=== PATIENT | female | born 1955 | race Caucasian/White ===

== ENCOUNTER 2025-03-11 10:44 | Oncology outpatient (recurring) (ONCR) | payer OTHER, SELFPAY ==
[2025-03-11 11:57] LABS: Estmated Average Glucose 131; Hemoglobin A1C 6.2 % (4.0-6.0)
[2025-03-11 12:08] LABS: Alanine Aminotransferase 14 U/L (0-33); Albumin Level 3.8 g/dL (3.5-5.2); Alkaline Phosphatase 58 U/L (35-105); Anion Gap 11.9 (5-19); Aspartate Amino Transferase 23 U/L (0-32); Blood Urea Nitrogen 10 mg/dL (8-23); Calcium 8.8 mg/dL (8.5-10.5); Carbon Dioxide 26 mmol/L (22-29); Chloride 104 mmol/L (98-107); Cholesterol 140 mg/dL (0-200); Ferritin 164 ng/mL (15-150); Globulin 2.5 g/dL (1.3-4.6); Glucose 114 mg/dL (65-115); HDL Cholesterol 57 mg/dL (60-100); Iron 75 ug/dL (37-145); Osmolality Calculated 286 mOsm/kg (285-295); Potassium 3.9 mmol/L (3.5-5.1); Sodium 138 mmol/L (136-145); Total Protein 6.3 g/dL (6.6-8.7); Triglycerides 88 mg/dL (0-150); VLDL Cholestrol Calculation 18 mg/dL (0-30)
[2025-03-11 12:22] LABS: Vitamin B12 1304 pg/mL (232-1245)
== END 2025-03-16 23:59 | disposition home or self-care (01) ==
LOC: ONCMED 10:45
PROVIDERS: Family Provider Internal Medicine; PCP Clinical Nurse Specialist Adult Health; Visit Provider Clinical Nurse Specialist Adult Health
DX: M06.9 Rheumatoid arthritis, unspecified (principal); E11.9 Type 2 diabetes mellitus without complications; D50.9 Iron deficiency anemia, unspecified
CPT/HCPCS: 36591; 80053; 80061; 82607; 82728; 83036; 83540; 85651; 86038; 86140; 86431

== ENCOUNTER → 2025-03-18 09:36 | Outpatient (BNVA) | payer OTHER, SELFPAY | PROVIDERS: Family Provider Internal Medicine; PCP Clinical Nurse Specialist Adult Health; Visit Provider Podiatrist Foot & Ankle Surgery | DX: M79.671 Pain in right foot (principal); M79.672 Pain in left foot; E11.40 Type 2 diabetes mellitus with diabetic neuropathy, unspecified; L84 Corns and callosities; L90.9 Atrophic disorder of skin, unspecified; M77.41 Metatarsalgia, right foot; M77.42 Metatarsalgia, left foot; I73.9 Peripheral vascular disease, unspecified | CPT/HCPCS: 73630; 99204 ==

== ENCOUNTER 2025-03-25 08:27 | Emergency (ER) | payer MEDICARE, SELFPAY ==
[2025-03-25 08:28] VITALS: BP 107/61; PULSE 78; RESP 16; TEMP 36.7; O2SAT 95; BMI 23.0
--- NOTE | 2025-03-25 08:30 | XR_ITS ---
WS: [id number] Right knee, 3 views, 03/25/2025 Clinical Data: pain Comparison: None. Findings: There is a right knee arthroplasty with components in good position. No periprosthetic fractures or loosening is seen. There is vascular calcification. XR/XR knee RT 3V* [id number] Impression: Right knee arthroplasty.
--- NOTE | 2025-03-25 08:40 | XR_ITS ---
WS: [id number] Right leg including the tibia and fibula, AP and lateral views, 03/25/2025 Clinical Data: Pain Comparison: None. Findings: No fractures or dislocations are seen. The tibia and fibula are intact. The soft tissues are normal. There is a right knee arthroplasty with components in good position. There is vascular calcification. XR/XR tibia fibula RT 2V [id number] Impression: Negative right leg.
--- NOTE | 2025-03-25 08:40 | W.ED.GENADLT ---
HPI - General Adult General: Chief complaint: Extremity Injury, Lower Stated complaint: RT Knee Pain Time Seen by Provider: 03/25/25 08:30 History of Present Illness: 69-year-old female who presents to the emergency room with complaints of right knee pain. She was walking yesterday felt a popping sensation in her proximal tibia. She denies falling she has been able to walk on it since then she uses a cane but it has been painful. No direct trauma or injury. She has no obvious deformity no redness she denies fever sweats or chills. No claudication. Denies back pain or radiating leg pain. Associated symptoms: Deny chest pain, dyspnea or rash Related Data Home Medications ?Medication ?Instructions ?Recorded ?Confirmed albuterol sulfate 90 mcg/actuation 2 puff inhalation Q6H PRN 03/11/25 03/18/25 aerosol inhaler (Ventolin HFA) aspirin 81 mg tablet,delayed 81 mg PO DAILY 03/11/25 03/18/25 release (Adult Aspirin Regimen) biotin 10,000 mcg chewable tablet mcg PO 03/11/25 03/18/25 (Hair, Skin and Nails (biotin)) buspirone 15 mg tablet 7.5 mg PO BID PRN anxiety 03/11/25 03/18/25 carvedilol 6.25 mg tablet (Coreg) 6.25 mg PO BID 03/11/25 03/18/25 cholecalciferol (vitamin D3) 10 10 mcg PO DAILY 03/11/25 03/18/25 mcg (400 unit) capsule clopidogrel 75 mg tablet 75 mg PO QDAY 03/11/25 03/18/25 dapagliflozin propanediol 10 mg 10 mg PO QAM 03/11/25 03/18/25 tablet (Farxiga) escitalopram oxalate 10 mg tablet 10 mg PO QDAY 03/11/25 03/18/25 ferrous sulfate 27 mg iron tablet 27 mg PO DAILY 03/11/25 03/18/25 fluticasone fur. 100 mcg-umeclid 1 inh inhalation Q24H 03/11/25 03/18/25 62.5 mcg-vilant 25 mcg inhalat.powder (Trelegy Ellipta) isosorbide mononitrate 60 mg 60 mg PO QAM 03/11/25 03/18/25 tablet,extended release 24 hr losartan 50 mg tablet 50 mg PO DAILY 03/11/25 03/18/25 mecobalamin (vitamin B12) 500 mcg 500 mcg PO .nightly 03/11/25 03/18/25 chewable tablet nitroglycerin 0.4 mg sublingual 0.4 mg sublingual Q5M PRN chest 03/11/25 03/18/25 tablet pain pantoprazole 40 mg tablet,delayed 40 mg PO DAILY 03/11/25 03/18/25 release ranolazine 1,000 mg 1,000 mg PO Q12H 03/11/25 03/18/25 tablet,extended release,12 hr tiotropium bromide 2.5 2 puff inhalation DAILY 03/11/25 03/18/25 mcg/actuation mist for inhalation (Spiriva Respimat) Previous Rx's ?Medication ?Instructions ?Recorded atorvastatin 80 mg tablet (Lipitor) 80 mg PO DAILY #90 tabs 03/11/25 baclofen 5 mg tablet 5 mg PO BID #60 tabs 03/11/25 furosemide 40 mg tablet (Lasix) 40 mg PO QAM #90 tabs 03/11/25 potassium chloride 10 mEq 20 meq (2 x 10 mEq) PO DAILY 90 03/11/25 tablet,extended release (Klor-Con) days #180 tabs tirzepatide 5 mg/0.5 mL 5 mg (0.5 mL) SUBCUT .every 7 days 03/11/25 subcutaneous pen injector #2 mL (David) diabetic shoes with 3 sets of #1 ea 03/18/25 inserts diclofenac sodium 75 mg 75 mg PO Q12H PRN pain #20 tabs 03/25/25 tablet,delayed release Allergies Allergy/AdvReac Type Severity Reaction Status Date / Time diphenhydramine (From Allergy Mild makes her Verified 03/25/25 08:40 Benadryl) loopy semaglutide (From Ozempic) Allergy Mild ADR-Nausea Verified 03/25/25 08:40 ticagrelor (From Brilinta) Allergy Mild ALGY-Rash Verified 03/25/25 08:40 band-aid Allergy Mild ALGY-Redness Uncoded 03/18/25 07:56 of Skin Review of Systems Const: Denies: fever(s) or chills Card: Denies: chest pain Resp: Denies: dyspnea GI: Denies: abdominal pain : Denies: dysuria, urinary frequency or urinary urgency Musc: Denies: neck pain or back pain Skin/Breast: Denies: rash PFSH ED PFSH: Medical History History of bleeding ulcers Port-A-Cath in place due to poor vascular access Hx of myocardial infarction X 3 bypasses Hx of cardiac pacemaker pacemaker with defibrillator Iron deficiency anemia hx of blood transfusions and iron infusions Hyperlipidemia GERD (gastroesophageal reflux disease) Hx of peptic ulcer Chronic joint pain Osteoporosis Rheumatoid arthritis COPD (chronic obstructive pulmonary disease) Essential hypertension Muscle spasm Anxiety and depression Tobacco dependence due to cigarettes Coronary artery disease Type 2 diabetes mellitus without complications Surgical History Hx of tubal ligation History of hip surgery right hip History of back surgery Hx of thoracic aortic aneurysm repair states she had a bottom aorta stent placed H/O cataract removal with insertion of prosthetic lens History of lymph node dissection of axilla Hx of knee surgery right Hx of CABG History of coronary artery stent placement Hx of adenoidectomy H/O dilation and curettage Hx of appendectomy Hx of cholecystectomy Family History Unknown No problems noted. Social History Smoking and tobacco/nicotine status: unknown if used tobacco/nicotine Alcohol intake: never Substance/Drug Use: never Marital status: Number of children: 3 Current occupational status: retired Physical Exam Const: GENERAL APPEARANCE: cooperative ORIENTATION/CONSCIOUSNESS: Yes awake, Yes oriented to person, Yes oriented to place and Yes oriented to time HENMT: COMMON NORMALS: normocephalic, atraumatic and hearing grossly normal bilaterally HEAD & SCALP: normocephalic and atraumatic Resp: COMMON NORMALS: normal respiratory effort, No retractions, No use of accessory muscles and clear to auscultation bilaterally AUSCULTATION: clear to auscultation bilaterally Cardio: COMMON NORMALS: regular rate, regular rhythm and No murmurs present (Cardio) RATE: regular rate RHYTHM: regular rhythm Extremity: COMMON NORMALS: normal to inspection, capillary refill normal, no clubbing, cyanosis or edema, no calf tenderness and no pedal edema OTHER: Right knee examined no obvious deformity. Able to flex and extend with mild tenderness over the tibial tuberosity no redness no erythema no laceration Neuro: SENSORIUM/ORIENTATION: Yes oriented to person, Yes oriented to place and Yes oriented to time Skin: COMMON NORMALS: no rashes or lesions noted GENERAL SKIN EXAM: no rashes or lesions noted Course Vital Signs: Vital signs: Vital Signs Temperature 98.0 F 03/25/25 08:28 Pulse Rate 78 03/25/25 08:28 Respiratory Rate 16 03/25/25 08:28 Blood Pressure 107/61 03/25/25 08:28 Pulse Oximetry 95 03/25/25 08:28 [facility] - General Adult Medical Decision Making X-rays unremarkable. Patient given ketorolac will discharge home. Follow-up with orthopedics she also mention that she has chronic pain in her right shoulder she would like to see the orthopedist for. Case management to arrange for referral Medical Records I reviewed the patient's medical records. Lab Data I reviewed the patient's lab results. Radiology Impressions Knee X-Ray 03/25/25 08:30 Impression: Right knee arthroplasty. Tibia/Fibula X-Ray 03/25/25 08:40 Impression: Negative right leg. All radiology interpretation(s) finalized by discharge Discharge Plan Discharge Patient Disposition: Home Clinical Impression: Pain in right lower leg Condition: Stable Prescriptions: New diclofenac sodium 75 mg tablet,delayed release (DR/EC) 75 mg PO Q12H PRN (Reason: pain) Qty: 20 0RF No Action clopidogrel 75 mg tablet 75 mg PO QDAY nitroglycerin 0.4 mg tablet, sublingual 0.4 mg sublingual Q5M PRN (Reason: chest pain) buspirone 15 mg tablet 7.5 mg PO BID PRN (Reason: anxiety) escitalopram oxalate 10 mg tablet 10 mg PO QDAY dapagliflozin propanediol [Farxiga] 10 mg tablet 10 mg PO QAM losartan 50 mg tablet 50 mg PO DAILY carvedilol [Coreg] 6.25 mg tablet 6.25 mg PO BID Rx Instructions: must administer with a meal/food isosorbide mononitrate 60 mg tablet extended release 24 hr 60 mg PO QAM pantoprazole 40 mg tablet,delayed release (DR/EC) 40 mg PO DAILY ranolazine 1,000 mg tablet extended release 12 hr 1,000 mg PO Q12H Spiriva Respimat 2.5 mcg/actuation mist 2 puff inhalation DAILY Trelegy Ellipta 100-62.5-25 mcg blister with device 1 inh inhalation Q24H aspirin [Adult Aspirin Regimen] 81 mg tablet,delayed release (DR/EC) 81 mg PO DAILY albuterol sulfate [Ventolin HFA] 90 mcg/actuation HFA aerosol inhaler 2 puff inhalation Q6H PRN cholecalciferol (vitamin D3) 10 mcg (400 unit) capsule 10 mcg PO DAILY ferrous sulfate 27 mg iron tablet 27 mg PO DAILY Hair, Skin and Nails (biotin) 10,000 mcg tablet,chewable PO mecobalamin (vitamin B12) 500 mcg tablet,chewable 500 mcg PO .nightly baclofen 5 mg tablet 5 mg PO BID Qty: 60 0RF atorvastatin [Lipitor] 80 mg tablet 80 mg PO DAILY Qty: 90 3RF furosemide [Lasix] 40 mg tablet 40 mg PO QAM Qty: 90 0RF potassium chloride [Klor-Con 10] 10 mEq tablet extended release 20 meq PO DAILY 90 Days Qty: 180 0RF Mounjaro 5 mg/0.5 mL pen injector 5 mg SUBCUT .every 7 days Qty: 2 6RF (DME) diabetic shoes with 3 sets of inserts See Rx Instructions .ROUTE .MEDSUPPLY Qty: 1 0RF Rx Instructions: As directed Discharge Orders: Discharge ED (Routine); Ordered 03/25/25 Ordered By: Prakash Jon Referrals: Helen Islas MD [Referring, Internal Medicine] Bulmaro Rico NP [Primary Care Provider, Family Practice] Discharge Diet: Usual diet Discharge Activity: Increase activity as tolerated Patient Instructions: Opioid Safety, Pain Management, Patient Portal & Gabrielle Instructions Activity Restrictions/Additional Instructions: Thank you for choosing [facility] for your healthcare needs today. It is very important that you follow up as instructed or that you return to the Emergency Department should you have concerns or if your condition changes or worsens in any way. Emergency department visits are focused on emergent conditions, in some cases you may require further evaluation on an outpatient basis. You are seen in the emergency room with complaint of pain to your right lower leg. X-rays did not show any acute fracture. Prosthesis appears well-seated. Recommend that you follow-up with your primary care doctor. Avoid strenuous activities continue to use the cane or walker while ambulating. (Please note that included in your discharge packet is information concerning opioid safety and pain management. This information is given to all patients were discharged from the ER regardless of their discharge diagnosis or the medicines they usually take or are prescribed.) Print Language: Citizen Of [place] Coding Level of Care Code ED Railway Track Worker for Rajeev Villalobos
[2025-03-25 09:35] VITALS: BP 124/70; PULSE 78; O2SAT 98
--- NOTE | 2025-03-26 07:44 | DCPLANNER ---
messaged ortho for er f/u
== END 2025-03-25 09:36 | disposition home or self-care (01) ==
PROVIDERS: Emergency Provider Family Medicine; PCP Clinical Nurse Specialist Adult Health
DX: M79.604 Pain in right leg (principal); Z79.02 Long term (current) use of antithrombotics/antiplatelets; Z79.82 Long term (current) use of aspirin; I25.10 Atherosclerotic heart disease of native coronary artery without angina pectoris; Z95.0 Presence of cardiac pacemaker; J44.9 Chronic obstructive pulmonary disease, unspecified; I10 Essential (primary) hypertension; E11.9 Type 2 diabetes mellitus without complications
CPT/HCPCS: 73562; 73590; 96374; 99284; J1885

== ENCOUNTER → 2025-03-27 09:17 | Outpatient (BNVA) | payer OTHER, MEDICAID, SELFPAY | PROVIDERS: Family Provider Internal Medicine; PCP Clinical Nurse Specialist Adult Health; Visit Provider Clinical Nurse Specialist Adult Health | DX: M25.811 Other specified joint disorders, right shoulder (principal) | CPT/HCPCS: 73030 ==

== ENCOUNTER → 2025-04-09 09:26 | Outpatient (BNVA) | payer MEDICARE, SELFPAY | PROVIDERS: PCP Clinical Nurse Specialist Adult Health; Visit Provider Student in an Organized Health Care Education/Training Program | DX: M75.81 Other shoulder lesions, right shoulder (principal); M19.011 Primary osteoarthritis, right shoulder | CPT/HCPCS: 20610; 73030; 99204; J3301; J9999 ==

== ENCOUNTER → 2025-04-15 08:51 | Outpatient (BNVA) | payer MEDICARE, SELFPAY | PROVIDERS: PCP Clinical Nurse Specialist Adult Health; Visit Provider Student in an Organized Health Care Education/Training Program | DX: M25.561 Pain in right knee (principal); M25.551 Pain in right hip; Z01.89 Encounter for other specified special examinations; S72.001K Fracture of unspecified part of neck of right femur, subsequent encounter for closed fracture with nonunion; M87.051 Idiopathic aseptic necrosis of right femur; X58.XXXD Exposure to other specified factors, subsequent encounter | CPT/HCPCS: 73523; 73560; 73565 ==

== ENCOUNTER 2025-04-15 11:15 | Oncology outpatient (recurring) (ONCR) | payer MEDICARE, SELFPAY ==
[2025-04-03 10:52] LABS: Hematocrit 31.1 % (36-47); Hemoglobin 10.20 g/dL (11.27-16.99); Mean Corpuscular HGB Conc 32.8 g/dL (30-55); Mean Corpuscular Hemoglobin 34.2 pg (27-33); Mean Corpuscular Volume 104.4 fl (85-98); Nucleated Red Blood Cells % 0 %; Platelet Count 116 10^3/cmm (157-399); Red Blood Count 2.98 10^6/uL (3.85-5.65); White Blood Count 4.02 10^3/uL (3.29-11.43)
[2025-04-03 11:11] LABS: Alanine Aminotransferase 11 U/L (0-33); Albumin Level 3.7 g/dL (3.5-5.2); Alkaline Phosphatase 111 U/L (35-105); Anion Gap 14.4 (5-19); Aspartate Amino Transferase 21 U/L (0-32); Blood Urea Nitrogen 25 mg/dL (8-23); Calcium 8.5 mg/dL (8.5-10.5); Carbon Dioxide 24 mmol/L (22-29); Chloride 107 mmol/L (98-107); Creatinine Clr Calc Pharmacy 59.6828; Globulin 2.9 g/dL (1.3-4.6); Glucose 124 mg/dL (65-115); Iron 69 ug/dL (37-145); Osmolality Calculated 298 mOsm/kg (285-295); Potassium 4.4 mmol/L (3.5-5.1); Sodium 141 mmol/L (136-145); Total Iron Binding Capacity 241 mcg/dl; Total Protein 6.6 g/dL (6.6-8.7); Unsaturated Iron Binding 172 ug/dL (112-347)
[2025-04-15 11:26] LABS: Hematocrit 32.3 % (36-47); Hemoglobin 10.60 g/dL (11.27-16.99); Mean Corpuscular HGB Conc 32.8 g/dL (30-55); Mean Corpuscular Hemoglobin 33.8 pg (27-33); Mean Corpuscular Volume 102.9 fl (85-98); Nucleated Red Blood Cells % 0 %; Platelet Count 100 10^3/cmm (157-399); Red Blood Count 3.14 10^6/uL (3.85-5.65); White Blood Count 9.40 10^3/uL (3.29-11.43)
[2025-04-15 11:41] LABS: Estmated Average Glucose 126; Hemoglobin A1C 6.0 % (4.0-6.0)
[2025-04-15 11:44] LABS: Alanine Aminotransferase 21 U/L (0-33); Albumin Level 3.9 g/dL (3.5-5.2); Alkaline Phosphatase 123 U/L (35-105); Anion Gap 15.9 (5-19); Aspartate Amino Transferase 22 U/L (0-32); Blood Urea Nitrogen 23 mg/dL (8-23); Calcium 9.1 mg/dL (8.5-10.5); Carbon Dioxide 25 mmol/L (22-29); Chloride 101 mmol/L (98-107); Creatinine Clr Calc Pharmacy 58.8515; Globulin 2.7 g/dL (1.3-4.6); Glucose 203 mg/dL (65-115); Osmolality Calculated 295 mOsm/kg (285-295); Potassium 3.9 mmol/L (3.5-5.1); Sodium 138 mmol/L (136-145); Total Protein 6.6 g/dL (6.6-8.7)
[2025-04-15 11:59] LABS: Glucose Urine UA 3+ (Normal); Nitrate Urine Negative (Negative); Specific Gravity, Urine 1.017 (1.005-1.030)
[2025-04-15 12:05] LABS: Add Urine Microscopic? YES
== END 2025-04-15 23:59 | disposition home or self-care (01) ==
PROVIDERS: Internal Medicine; Student in an Organized Health Care Education/Training Program; PCP Clinical Nurse Specialist Adult Health; Visit Provider Clinical Nurse Specialist Adult Health
DX: Z53.9 Procedure and treatment not carried out, unspecified reason; Z01.818 Encounter for other preprocedural examination; S72.001K Fracture of unspecified part of neck of right femur, subsequent encounter for closed fracture with nonunion; X58.XXXA Exposure to other specified factors, initial encounter; E11.9 Type 2 diabetes mellitus without complications; M87.051 Idiopathic aseptic necrosis of right femur; M25.561 Pain in right knee
CPT/HCPCS: 36591; 80053; 81001; 82746; 83036; 83540; 83550; 84238; 85025; 99204; 99205; 99214

== ENCOUNTER 2025-05-09 09:00 | Oncology outpatient (recurring) (ONCR) | payer OTHER, MEDICAID, SELFPAY ==
--- NOTE | 2025-05-09 | ECG_ITS ---
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 The perfusion scan will be documented separately. DATA: Baseline heart rate was 69 beats per minute. Baseline blood pressure was 109/52 millimeters of mercury. Target heart rate was 152. Maximum heart rate achieved was 86. which was 56% of the predicted target heart rate. Maximum blood pressure was 109/63 millimeters of mercury. The reason for ending the test was completion of the protocol. The patient did not experience any symptoms. ELECTROCARDIOGRAM: BASELINE: Sinus rhythm. Normal axis. Paced rhythm EXERCISE: After Lexiscan injection, no ST-T changes suggestive of ischemic noted. No arrhythmia noted. CONCLUSION: Please note due to baseline abnormality of the EKG specificity and sensitivity of the EKG portion of LexiScan MIBI stress test will be low 1. EKG not suggestive of ischemia 2. Lexiscan injection unremarkable. 3. Perfusion scan will be documented separately. Electronically Signed On 05-21-2025 20:29:10 FORESTRY AID TECHNICIAN by TABITHA XIE [email or web address]
--- NOTE | 2025-05-09 07:15 | USCV_ITS ---
Alma Pittman Age: 69 Gender: F : 1955 Exam Date: 05/09/2025 07:34 Ordering Phys: Andrews James MD ([email or web address]) Technologist: Exam Location: [facility] [place] Indication: sob cp BP: 120 / 70 HR: 71 Rhythm: Sinus Technical Quality: Adequate MEASUREMENTS (Male / Female) Normal Values 2D ECHO LV Diastolic Diameter PLAX 5.3 cm 4.2 - 5.9 / 3.9 - 5.3 cm IVS Diastolic Thickness 1.2 cm 0.6 - 1.0 / 0.6 - 0.9 cm IVS Systolic Thickness 1.3 cm LVPW Diastolic Thickness 1.3 cm 0.6 - 1.0 / 0.6 - 0.9 cm LVPW Systolic Thickness 1.2 cm LVOT Diameter 2.0 cm LV Ejection Fraction 2D Teich 11.9 % LV Ejection Fraction MOD 4C 38.4 % LA Diameter 4.7 cm RA Systolic Volume 4C AL 39.0 ml RA Systolic Volume 4C MOD 37.1 ml LA Sys Volume AL 164.8 cm cubed LA Sys Volume Index AL 116.8 cm cubed/m squared Aorta at Sinotubular Diameter 2.5 cm M-MODE LA Ao Ratio MM 2.1 AV Cusp Separation MM 1.6 cm DOPPLER AV Peak Velocity 167.0 cm/s LVOT Peak Velocity 64.0 cm/s AV Area Cont Eq vti 1.2 cm squared AV Area Cont Eq pk 1.1 cm squared MV Peak Velocity 241.0 cm/s MV Area PHT 2.2 cm squared Mitral E to A Ratio 1.1 TV Peak Velocity 303.5 cm/s TR Peak Velocity 311.0 cm/s TR Peak Gradient 38.7 mmHg TV Peak E Velocity 99.0 cm/s PV Peak Velocity 98.0 cm/s FINDINGS Left Ventricle Mild left ventricular enlargement. Severely reduced left ventricular systolic function with akinesis of the anterior septum, inferior septum and apical cap and hypokinesis of the rest of the myocardial segments. Estimated ejection fraction 25% to 30%. Mild concentric left ventricular hypertrophy unable to assess left ventricular diastolic function due to severe mitral valve stenosis and mitral valve annular calcification. Right Ventricle Normal right ventricular size and systolic function. Catheter present in the right ventricle and the right atrium. Right Atrium Normal right atrial size. Left Atrium Severe left atrial enlargement. IA Septum Normal appearance of the interatrial septum. Mitral Valve Mitral valve not well-visualized. Severe calcification of the mitral valve annulus. Thickened and calcified mitral valve leaflets with severely reduced motion. Severe mitral valve stenosis with a mean pressure gradient of 10.5 mmHg at a heart rate of 71 bpm. Moderate mitral valve regurgitation. Aortic Valve Aortic valve not well-visualized. Bioprosthetic aortic valve replacement with normal function. Tricuspid Valve Trace tricuspid valve regurgitation. Mild pulmonary hypertension, PASP 46 mmHg. Pulmonic Valve Trace pulmonic valve regurgitation Pericardium No pericardial effusion. Aorta Normal diameter of the aortic root and ascending thoracic aorta. IVC Inferior vena cava not visualized. CONCLUSIONS 1. Mild dilatation of the left ventricle. Severely reduced left ventricular systolic function with an ejection fraction of 25 to 30%. 2. Mild concentric left ventricular hypertrophy 3. Normal right ventricular size and systolic function 4. Pacer wires seen in the right ventricle and the right atrium 5. Severe left atrial enlargement 6. Severe mitral valve stenosis and moderate mitral valve regurgitation. Severe calcification of the mitral valve annulus and leaflets. 7. Normal functioning bioprosthetic aortic valve 8. Mild pulmonary hypertension, PASP 46 mmHg Andrews James MD, FACC (Electronically Signed) Final Date: 14 May 2025 19:19 S
[2025-05-09 08:49] VITALS: BMI 21.6
--- NOTE | 2025-05-09 08:51 | NMCV_ITS ---
NM davide perf SPECT r/s* [id number] Alma Pittman Age: 69 Gender: F : 1955 Exam Date: 05/09/2025 09:55 Ordering Phys: Bulmaro Rico NP Technologist: MANFRED Francis Exam Location: [facility] Indications: cp STRESS TEST Please see separate stress test report in [facility] for full findings IMAGE PROTOCOL Rest/Stress 1 Lexiscan Day Radiopharmaceutical Dose (mCi) Administration Site Administered by Rest: Tc-99m 10.5 IV MANFRED Francis Sestamibi Stress:Tc-99m 32.7 IV MANFRED Partida Sestamibi Rest: 09-May-2025 60 Discovery 630 Stress: 09-May-2025 30 Discovery 630 0.4mg Lexiscan. Supine position only as patient was unable to lay prone. SPECT RESULTS Technical Quality: Good Raw Data Analysis: Normal Image Corrections: No attenuation or motion correction applied Summed Stress Score: 16 Summed Rest Score: 17 Summed Difference Score: 2 PERFUSION FINDINGS Large area of fixed perfusion defect noted in basal to distal anterior wall suggestive of old myocardial infarction versus scarring. Medium area of fixed perfusion defect noted in basal to distal inferoseptal wall suggestive of old myocardial infarction versus scarring without maureen-infarct ischemia. FUNCTIONAL RESULTS (calculated via Gated SPECT) Stress Image LV EF (%): 24 Stress EDV (mL):230 TID: 0.98 Stress ESV (mL):175 FUNCTIONAL FINDINGS: Basal to distal anterior wall akinesis. Mid to distal inferoseptal wall hypokinesis IMPRESSIONS Basal to distal anterior and mid to distal inferoseptal wall old myocardial infarction versus scarring without ischemia noted. Natalie Hylton MD (Electronically Signed) Final Date: 11 May 2025 01:43 S
[2025-05-09 10:59] VITALS: BP 104/49; PULSE 77
== END 2025-05-16 23:59 | disposition home or self-care (01) ==
LOC: RAD 05-10 → ONCMED 05-12 09:25
PROVIDERS: PCP Clinical Nurse Specialist Adult Health; Visit Provider Clinical Nurse Specialist Adult Health
DX: Z53.9 Procedure and treatment not carried out, unspecified reason; I25.10 Atherosclerotic heart disease of native coronary artery without angina pectoris; I27.20 Pulmonary hypertension, unspecified; I51.7 Cardiomegaly; I05.0 Rheumatic mitral stenosis; I70.8 Atherosclerosis of other arteries
CPT/HCPCS: 36415; 78452; 93017; 93306; 94010; 94726; 94729; 96374; A9500; J2785

== ENCOUNTER 2025-05-26 15:15 | Oncology outpatient (recurring) (ONCR) | payer OTHER, MEDICAID, SELFPAY ==
[2025-05-21 10:39] LABS: Hematocrit 36.0 % (36-47); Hemoglobin 12.00 g/dL (11.27-16.99); Mean Corpuscular HGB Conc 33.3 g/dL (30-55); Mean Corpuscular Hemoglobin 34.8 pg (27-33); Mean Corpuscular Volume 104.3 fl (85-98); Nucleated Red Blood Cells % 0 %; Platelet Count 80 10^3/cmm (157-399); Red Blood Count 3.45 10^6/uL (3.85-5.65); White Blood Count 4.87 10^3/uL (3.29-11.43)
[2025-05-21 10:58] LABS: Alanine Aminotransferase 17 U/L (0-33); Albumin Level 3.8 g/dL (3.5-5.2); Alkaline Phosphatase 80 U/L (35-105); Anion Gap 13.8 (5-19); Aspartate Amino Transferase 22 U/L (0-32); Blood Urea Nitrogen 11 mg/dL (8-23); Calcium 9.1 mg/dL (8.5-10.5); Carbon Dioxide 25 mmol/L (22-29); Chloride 106 mmol/L (98-107); Ferritin 142 ng/mL (15-150); Globulin 2.7 g/dL (1.3-4.6); Glucose 135 mg/dL (65-115); Iron 54 ug/dL (37-145); Osmolality Calculated 293 mOsm/kg (285-295); Potassium 3.8 mmol/L (3.5-5.1); Sodium 141 mmol/L (136-145); Total Iron Binding Capacity 265 mcg/dl; Total Protein 6.5 g/dL (6.6-8.7); Unsaturated Iron Binding 211 ug/dL (112-347)
[2025-05-21 11:14] LABS: Vitamin B12 1047 pg/mL (232-1245)
--- NOTE | 2025-05-26 15:15 | CT_ITS ---
WS: [id number] CT RIGHT SHOULDER, NONCONTRAST HISTORY: M25.811 - Other specified joint disorders, right shoulder, unable to raise arm for 1 month. No injury. Technique: All CT scans at [facility] use at least one of these dose optimization techniques: automated exposure control; mA and/or kV adjustment per patient size (includes targeted exams where dose is matched to clinical indication); or iterative reconstruction. DLP: 353.76 mGy.cm COMPARISON: 04/09/2025 radiographs. No acute fractures identified. Osseous defect in the humeral head adjacent to the glenoid. This defect is well corticated suggesting this is not an acute fracture. Defect measures 1.6 x 0.5 cm. There is an osseous fragment of bone measuring 2.0 x 0.3 cm associated with the subscapularis recess and the distal subscapularis tendon. Additional subchondral cystic changes in the humeral head. Mild AC joint arthritis. There is a small hyperdense focus measuring 3 mm in the soft tissues lateral to the acromion. This is external to the joint and just beneath the skin surface. Clavicle is normal. Humeral head is slightly high riding. Calcific tendinitis noted in the distal supraspinatus tendon. Severe atrophy of the supraspinatus muscle. No destructive bone lesions. LEFT upper lobe granuloma. Postsurgical changes in the heart. LEFT subclavian pacer is present. Aortic valve replacement appears to be present also. CT/CT shoulder RT wo con* [id number] IMPRESSION: 1. Well-corticated concave defect involving the medial humeral head. Defect me asures 1.6 x 0.5 cm. May be the result of prior trauma or osteonecrosis. 2. Osseous fragment noted in the subscapularis recess measures 2.0 x 0.3 cm. T his is probably the bone fragment from the humeral head that is displaced. 3. Mildly high riding humeral head. 4. Additional subchondral cystic changes involving the humeral head. 5. Calcific tendinitis distal supraspinatus tendon. 6. Severe atrophy supraspinatus muscle.
== END 2025-06-15 23:59 | disposition home or self-care (01) ==
LOC: RAD 05-27 → ONCMED 05-27 09:09
PROVIDERS: Internal Medicine; PCP Clinical Nurse Specialist Adult Health; Visit Provider Clinical Nurse Specialist Adult Health
DX: M25.811 Other specified joint disorders, right shoulder (principal); R93.7 Abnormal findings on diagnostic imaging of other parts of musculoskeletal system; M89.8X8 Other specified disorders of bone, other site; M67.813 Other specified disorders of tendon, right shoulder; M62.511 Muscle wasting and atrophy, not elsewhere classified, right shoulder; M19.011 Primary osteoarthritis, right shoulder; J84.10 Pulmonary fibrosis, unspecified; Z96.89 Presence of other specified functional implants; Z95.4 Presence of other heart-valve replacement
CPT/HCPCS: 36591; 73200; 80053; 82607; 82728; 83540; 83550; 84238; 85025

== ENCOUNTER → 2025-06-04 10:08 | Outpatient (BNVA) | payer OTHER, MEDICAID, SELFPAY | PROVIDERS: PCP Clinical Nurse Specialist Adult Health; Visit Provider Student in an Organized Health Care Education/Training Program | DX: M19.011 Primary osteoarthritis, right shoulder (principal); M75.81 Other shoulder lesions, right shoulder; M25.811 Other specified joint disorders, right shoulder | CPT/HCPCS: 20610; 73502; 99213; J3301; J9999 ==

== ENCOUNTER 2025-07-16 11:15 | Oncology outpatient (recurring) (ONCR) | payer OTHER, MEDICAID, SELFPAY ==
--- NOTE | 2025-06-24 14:20 | MM_ITS ---
WS: [id number] BILATERAL 3D TOMOSYNTHESIS DIGITAL SCREENING MAMMOGRAPHY WITH CAD CLINICAL INFORMATION: Z12.39 - Encounter for other screening for malignant neop... HISTORY: Screening mammogram. No current complaints. COMPARISON: 2009 TECHNIQUE: Bilateral CC and MLO views. FINDINGS: Scattered fibroglandular densities bilaterally. No suspicious focal mass, asymmetry, calcifications, or architectural distortion. No evidence of malignancy. Vascular calcification. Punctate and coarse calcifications. Cardiac pacer MM/MM scr tomosynthesis [id number] IMPRESSION: DENSITY: There are scattered areas of fibroglandular density. BI-RADS: 2 - Benign. FOLLOW UP: 1 Year Follow-up Recommend return to annual screening mammography.
--- NOTE | 2025-07-11 08:15 | CT_ITS ---
WS: [id number] LDCT LUNG CANCER SCREENING HISTORY: F17.210 - Nicotine dependence, cigarettes, uncomplicated TECHNIQUE: Axial imaging performed from the apices to 1 cm below the costophrenic angles. Coronal and sagittal reformats are submitted with axial MIP series. All CT scans at [facility] use at least one of these dose optimization techniques: automated exposure control; mA and/or kV adjustment per patient size (includes targeted exams where dose is matched to clinical indication); or iterative reconstruction. DLP: 44.52 mGy.cm DIvol: Mean CTDIvol: 0.80 (mGy) COMPARISON: None available. Diagnostic quality: Satisfactory Lungs: Chronic emphysema. Benign granuloma RIGHT upper lobe. There are a few small peripheral nodules. No mass. Additional calcified granuloma medial RIGHT lung base. No endobronchial lesions. Heart: Moderate cardiomegaly. Extensive coronary artery calcifications. Prior CABG. Aortic valve replacement. LEFT subclavian pacer and defibrillator wires.. Other findings: Dense calcification in the thoracic aorta. Pulmonary artery slightly enlarged. Does appear to be a right-sided vascular catheter which may be related to the dialysis. Soft tissue anasarca. Cirrhotic liver as visualized. LEFT adrenal gland thickening and possible adenoma measuring 1.3 cm. Hounsfield units are low. Moderate suprarenal aortic calcifications and splenic artery calcifications. T11 vertebroplasty. CT/CT lung screening [id number] IMPRESSION: LUNG-RADS: 2S-Benign Appearance or Behavior with Significant Findings FOLLOW UP: 12 Month: Continue annual screening with LDCT OTHER FINDINGS (S MODIFIER): Cirrhotic liver. LEFT adrenal adenoma. Extensive t horacic and suprarenal aorta atherosclerotic calcified plaque.
[2025-07-15 09:20] LABS: Hematocrit 32.9 % (36-47); Hemoglobin 10.60 g/dL (11.27-16.99); Mean Corpuscular HGB Conc 32.2 g/dL (30-55); Mean Corpuscular Hemoglobin 35.0 pg (27-33); Mean Corpuscular Volume 108.6 fl (85-98); Nucleated Red Blood Cells % 0 %; Platelet Count 76 10^3/cmm (157-399); Red Blood Count 3.03 10^6/uL (3.85-5.65); White Blood Count 3.54 10^3/uL (3.29-11.43)
[2025-07-15 09:44] LABS: Alanine Aminotransferase 16 U/L (0-33); Albumin Level 3.8 g/dL (3.5-5.2); Alkaline Phosphatase 81 U/L (35-105); Anion Gap 16.5 (5-19); Aspartate Amino Transferase 23 U/L (0-32); Blood Urea Nitrogen 14 mg/dL (8-23); Calcium 8.7 mg/dL (8.5-10.5); Carbon Dioxide 24 mmol/L (22-29); Chloride 103 mmol/L (98-107); Ferritin 188 ng/mL (15-150); Globulin 2.2 g/dL (1.3-4.6); Glucose 162 mg/dL (65-115); Iron 60 ug/dL (37-145); Osmolality Calculated 294 mOsm/kg (285-295); Potassium 3.5 mmol/L (3.5-5.1); Sodium 140 mmol/L (136-145); Total Iron Binding Capacity 254 mcg/dl; Total Protein 6.0 g/dL (6.6-8.7); Unsaturated Iron Binding 194 ug/dL (112-347)
[2025-07-16 12:02] LABS: Vitamin B12 1119 pg/mL (232-1245)
== END 2025-07-16 23:59 | disposition home or self-care (01) ==
PROVIDERS: Nurse Practitioner Family; PCP Clinical Nurse Specialist Adult Health; Visit Provider Clinical Nurse Specialist Adult Health
DX: D50.9 Iron deficiency anemia, unspecified; Z95.828 Presence of other vascular implants and grafts; F17.210 Nicotine dependence, cigarettes, uncomplicated; Z79.899 Other long term (current) drug therapy; Z53.9 Procedure and treatment not carried out, unspecified reason
CPT/HCPCS: 36591; 71271; 77063; 77067; 80053; 82607; 82728; 82746; 83540; 83550; 85025; 99213